=== PATIENT | male | born 1990 | race Two or more races ===

== ENCOUNTER 2023-02-13 10:05 | Emergency (ER) | payer MEDICAID ==
[~2023-02-13] VITALS: Ht 165.1 cm; Wt 81.0 kg
[2023-02-13 11:25] LABS: Basophils # (auto) 0 10 ^3/uL (0-0.2); Basophils % (auto) 0.6 % (0.0-2.0); Eosinophils # (auto) 0.2 10 ^3/uL (0-0.8); Hematocrit 45.6 % (41.0-53.0); Hemoglobin 15.7 g/dL (13.5-17.5); Lymphocytes # (auto) 2.1 10 ^3/uL (0.4-5.4); Lymphocytes % (auto) 37.8 % (10.0-50.0); Mean Corpuscular Hgb Conc. 34.4 g/dL (32.0-36.0); Mean Corpuscular Volume 84.3 fL (80.0-100.0); Monocytes # (auto) 0.5 10 ^3/uL (0-1.3); Neutrophils # (auto) 2.8 10 ^3/uL (1.6-8.6); Neutrophils % (auto) 49.6 % (37.0-80.0); Nucleated Red Blood Cells % 0.2 %; Red Blood Cells 5.41 10^6/uL (4.5-5.90); Red Cell Distribution Width 13.2 % (11.8-14.3); White Blood Cell 5.6 10^3/uL (4.4-10.8)
[2023-02-13 11:42] LABS: Albumin 4.1 g/dL (3.4-5.0); BUN/Creatinine Ratio 20.5 (10.0-20.0); Calcium 9.1 mg/dL (8.5-10.1)
[2023-02-13 11:45] LABS: Bilirubin, Total 0.3 mg/dL (0.2-1.0); Total Protein 7.9 g/dL (6.4-8.2)
[2023-02-13 11:50] LABS: Urine Bacteria FEW /hpf (None Seen); Urine Blood Negative /uL (Negative); Urine Specific Gravity 1.023 (1.001-1.035); Urine WBC <1 /hpf (0 - 3)
[2023-02-13] MEDS ORDERED: PANT40TA2 PO (12:44)
[2023-02-13 13:50] VITALS: BP 127/73
== END 2023-02-13 13:53 | disposition home or self-care (01) ==
LOC: ER 10:05
DX: K29.00 Acute gastritis without bleeding (principal); B96.89 Other specified bacterial agents as the cause of diseases classified elsewhere
CPT/HCPCS: 36415; 76705; 80053; 81001; 83690; 85025